=== PATIENT | female | born 1950 | race Caucasian/White ===

== ENCOUNTER 2022-05-12 09:52 | Day surgery (SDC) | payer MEDICARE, SELFPAY ==
[2022-05-12] VITALS (7 sets, daily range): BP systolic 95–151; BP diastolic 54–60; PULSE 56–72; RESP 16; TEMP 36.1–36.6; O2SAT 90–98; BMI 25.4
[2022-05-12 10:36] LABS: Bedside Glucose 192 mg/dL (74-106)
--- NOTE | 2022-05-12 11:21 | PCM.DC ---
Discharge Instructions Diet Discharge Diet: No restrictions Activity Discharge Activity: Return to Normal Activity Dressing / Incision Call your doctor if you observe: Fever of 101 or Higher, Inability to urinate and Inability to have a bowel movement Follow Up Care Please Follow Up With: Madyson Plaza MD When: Call the office for appointment in 1 to 2 weeks Test Results: Test results from this visit will be discussed in further detail at your follow-up appointment, if applicable. Discharge Plan Admission Attending Provider: Madyson Plaza Primary Care Provider: Dyana Diaz NP Discharge Orders/Prescriptions Prescriptions: Continued losartan 50 mg tablet 50 mg PO DAILY furosemide 40 mg tablet 40 mg PO DAILY sennosides [Senna Laxative] 8.6 mg Tablet 68.8 mg PO QHS acetaminophen 325 mg Tablet 650 mg PO Q4H PRN (Reason: Pain) atorvastatin 20 mg Tablet 20 mg PO QHS albuterol sulfate 2.5 mg /3 mL (0.083 %) solution for nebulization 2.5 mg inhalation 4X/DAY PRN PRN (Reason: SOB) polyethylene glycol 3350 [Miralax] 17 gram Powder In Packet 17 - 34 g PO DAILY metoprolol tartrate 100 mg tablet 100 mg PO BID glipizide 10 mg tablet extended release 24hr 10 mg PO DAILY isosorbide mononitrate 30 mg tablet extended release 24 hr 30 mg PO DAILY sertraline 100 mg tablet 100 mg PO BID docusate sodium 50 mg Capsule 100 mg PO QHS methenamine hippurate 1 gram tablet 1 g PO BID ascorbic acid (vitamin C) [Vitamin C] 500 mg Tablet 500 mg PO DAILY metformin 1,000 mg tablet 1,000 mg PO BID buspirone 10 mg tablet 10 mg PO BID Label Comments: TAKE 1 TABLET BY MOUTH TWICE DAILY diphenhydramine HCl [Allergy] 25 mg Tablet 25 mg PO DAILY Spiriva with HandiHaler 18 mcg capsule, w/inhalation device 18 mcg INHALATION DAILY nitrofurantoin monohyd/m-cryst 100 mg capsule 100 mg PO BID Label Comments: TAKE 1 CAPSULE BY MOUTH TWICE DAILY FOR 7 DAYS calcium carbonate-vitamin D3 500 mg-3.125 mcg (125 unit) Tablet 2 tab PO DAILY melatonin 10 mg Tablet 10 mg PO QHS aspirin 81 mg Capsule 81 mg PO QHS Referrals / Follow Up: Dyana Diaz NP, CABLE TELEVISION ACCESS COORDINATOR-C [Primary Care Provider] - Disposition Disposition (needs filled in before D/C Order can be placed): Home, Self Care
--- NOTE | 2022-05-12 11:23 | PCM.OPRPT ---
Report of Operation Date of Procedure: 05/12/22 Pre-Operative Diagnosis: Urinary tract infections, mixed urinary incontinence Post-Operative Diagnosis: Same Surgery/Procedure Performed:: Cystoscopy, pelvic exam under anesthesia Surgeon: Madyson Plaza Type of Anesthesia: MAC Specimen's removed: None Description of Procedure: The patient is a 71-year-old female with recurrent urinary tract infections and leakage who presents for evaluation under anesthesia due to the inability to undergo this procedure in the office. Informed consent was obtained. The patient was taken to the operating room placed on the operating room table. Anesthesia monitored the head, neck, airway, IV access and vital signs throughout the case. Once anesthesia was appropriate ministered, the patient was placed into dorsal lithotomy position and was prepped and draped in usual sterile fashion. A pelvic exam revealed no evidence of significant pelvic organ prolapse, no pelvic mass. There is vaginal atrophy present. The urethra was then intubated under direct visualization with the cystoscope. The bladder mucosa in its entirety was directly visualized and there was no evidence of erythema, mass, ulceration or foreign body. At this time the patient's bladder was emptied and the case was terminated. There were no complications during this procedure. The patient was awakened and taken to recovery room in good condition. Grafts/Implants Used: None Complications None Admit VTE Documentation VTE Present on Admission: Yes VTE Mechan Device Prophylaxis: SCD's VTE Pharm Prophylaxis ordered?: No Reason prophylaxis not ordered:: Treatment Not Indicated
== END 2022-05-12 12:33 | disposition home or self-care (01) ==
LOC: SDC 09:57 → AC 09:58
PROVIDERS: PCP Nurse Practitioner Primary Care; Referring Provider Urology; Visit Provider Urology
PROC: 0TJB8ZZ Inspection of Bladder, Via Natural or Artificial Opening Endoscopic (ICD-10-PCS; CPT 57410; principal; 2022-05-12 11:15)
DX: N39.46 Mixed incontinence (principal); J44.9 Chronic obstructive pulmonary disease, unspecified; E11.9 Type 2 diabetes mellitus without complications; N95.2 Postmenopausal atrophic vaginitis; I25.10 Atherosclerotic heart disease of native coronary artery without angina pectoris; I10 Essential (primary) hypertension; I35.0 Nonrheumatic aortic (valve) stenosis; I25.2 Old myocardial infarction; E78.00 Pure hypercholesterolemia, unspecified; K59.09 Other constipation; R35.0 Frequency of micturition; R35.1 Nocturia; F32.A Depression, unspecified; F17.200 Nicotine dependence, unspecified, uncomplicated; Z95.5 Presence of coronary angioplasty implant and graft; Z79.82 Long term (current) use of aspirin; Z79.84 Long term (current) use of oral hypoglycemic drugs; Z79.899 Other long term (current) drug therapy; Z87.440 Personal history of urinary (tract) infections
CPT/HCPCS: 52000; 82962; J7120

== ENCOUNTER → 2024-10-21 | Outpatient (CLI) | payer MEDICARE, SELFPAY ==
--- NOTE | 2024-10-21 | BON_PTH ---
PATIENT: CHRISTINA MARCIAL LOC: [facility] U#:[id number] AGE/SX: 74/F ROOM: RE10/21/[address]: Dr. Jonny Juarez MD : 1950 BED: DIS: 10/21/2024 SPEC #: [id number] RECD: 10/21/24 15:12 STATUS: AAKASH REYadiel #: [id number] KATE: 10/21/24 00:[address]: Jonny Juarez DEPT: SURGICAL PATHOLOGY RECD BY: Elia Medina ENTERED: 10/22/24 12:20 SP TYPE: Bone OTHR DR: Dyana Diaz, APPLIANCE SALES ASSOCIATE-C Tissues: Vertebra, NOS Procedures: Decalcification bone/plaque Surgery Specimen Level IV HEADER OPERATION: Kyphoplasty of L4 under fluoroscopy with biopsy of L4 PRE-OP DIAGNOSIS: Age-related osteoporosis with current pathologic fracture, vertebrae, initial encounter for fracture TISSUE SUBMITTED: Body of L4 vertebrae MICROSCOPIC DIAGNOSIS Body of L4 vertebrae, bone biopsy: Reactive and reparative change consistent with fracture site. No evidence of malignancy. . 10/24/2024 MICROSCOPIC DESCRIPTION Slides are reviewed. GROSS DESCRIPTION Received in fixative is one container labeled with the patient's name and designated Body of L4 vertebrae. The specimen consists of a cylindrical fragment of gutierrez bone measuring 1.0 x 0.2 x 0.2cm. The specimen is totally submitted in one cassette after decalcification. . 10/22/2024 TC:5 CPT:70173,19934
== END | disposition home or self-care (01) ==
LOC: LABSPEC 15:47
PROVIDERS: PCP Nurse Practitioner Primary Care; Referring Provider Anesthesiology Pain Medicine; Visit Provider Anesthesiology Pain Medicine
DX: M80.08XA Age-related osteoporosis with current pathological fracture, vertebra(e), initial encounter for fracture (principal)
CPT/HCPCS: 88305; 88311

== ENCOUNTER 2024-12-17 17:59 | Inpatient (IN) | payer MEDICARE, SELFPAY ==
[2024-12-17 17:59] VITALS: BP 174/99; PULSE 128; RESP 20; TEMP 36.1; O2SAT 96; BMI 22.2
[2024-12-17 19:29] LABS: Alcohol, Blood (Medical)-Serum < 3.0 mg/dL
[2024-12-17 19:33] LABS: Absolute Lymphocyte Count 0.92 X10^3/uL (0.83-4.51); Absolute Neutrophil Count 7.4 X10^3/uL (2.0-7.7); Basophil# 0.06 X10^3/uL; Basophil% 0.7 % (0-1); Eosinophil# 0.02 X10^3/uL; Eosinophils% 0.2 % (0-5); Hematocrit 46.8 % (37-47); Lymphocyte # 0.92 X10^3/ul (0.83-4.51); Lymphocyte % 10.1 % (19-41); Mean Corp Hgb Conc 34.2 g/dL (32-36); Mean Corpuscular Hgb 27.8 pg (27.0-32.0); Mean Corpuscular Volume 81.3 fL (81-99); Mean Platelet Vol. 9.4 fl (6.2-12.0); Monocyte# 0.62 X10^3/uL; Monocyte% 6.8 % (0-10); NRBC Flagged by Analyzer 0 % (0-5); Neutrophil # 7.41 X10^3/uL (2.7-7.7); Neutrophil % 81.2 % (47-70); Platelet Count 249 K/mm3 (150-450); RBC Distribution Width CV 12.4 % (11.6-14.6); RBC Distribution Width SD 36.7 fl (35.1-43.9); Red Blood Count 5.76 M/mm3 (4.2-5.4); White Blood Count 9.1 K/mm3 (4.4-11.0)
[2024-12-17 19:41] LABS: Anion Gap 13 (5-15); BUN 17 mg/dL (7-18); BUN/Creat Ratio 33.3 RATIO (10-20); Calcium,Total 9.4 mg/dL (8.5-10.1); Chloride 83 mmol/L (98-107); Creatinine, Serum 0.51 mg/dL (0.55-1.02); EST Glomerular Filtration Rate 126 mL/min (>60); Est Glom Filt Rate - Afr Amer 152 mL/min (>60); Estimated Creatinine Clearance 52.58 ml/min; Glucose 208 mg/dL (74-106); Potassium 4.2 mmol/L (3.5-5.1); Sodium Level 117 mmol/L (136-145)
--- NOTE | 2024-12-17 19:42 | EKG12_ITS ---
Test Reason : DYSRHYTHMIA Blood Pressure : */* mmHG Vent. Rate : 112 BPM Atrial Rate : 112 BPM P-R Int : 182 ms QRS Dur : 74 ms QT Int : 334 ms P-R-T Axes : * 32 66 degrees QTcB Int : 455 ms Sinus tachycardia with occasional Premature ventricular complexes Septal infarct , age undetermined Abnormal ECG Confirmed by TARYN BROTHERS, JASSI ([id number]), technical writer and editor ALEXANDRA PAT ([id number]) on 12/23/2024 7:08:52 AM Referred By: Confirmed By: JASSI CENTENO MD
--- NOTE | 2024-12-17 19:42 | RAD_ITS ---
INDICATION: ms change EXAMINATION/TECHNIQUE: X-RAY - XR Chest 1 View COMPARISON: None. FINDINGS: 1.5 cm round density projecting over the left lung base. The lungs are otherwise clear. Tortuous and calcified thoracic aorta. The heart is not enlarged. No pleural effusion or pneumothorax. Degenerative changes of the thoracic spine. RAD/Chest 1 View (Portable) IMPRESSION: 1.5 cm round density projecting over the left lung base could represent a pulmonary nodule versus nipple shadow. Recommend AP and lateral view radiographs with nipple markers. Electronically Signed: Kalen Matthews MD at 20:59 EST ,
--- NOTE | 2024-12-17 19:52 | EX.ED.VIS.PS ---
HPI HPI - Psych History of Present Illness Chief Complaint: Mental Health Detail of Chief Complaint: Failure to thrive. Informant: patient and family Onset/Context/Timing Onset: Days Context: Gradual Onset Timing: Continuous Current Severity: Moderate Maximum Severity: Moderate Associated Symptoms Associated Symptoms - Psych: Positive for Depressed Specific plan (suicidal thought): No plan. Lost her will to live per family. Narrative Narrative: 74-year-old female history of anxiety and depression. Today was seen by the [facility]. Due to failure to thrive and depression he send in the emergency department for an ED mental health evaluation and possible psychiatric transfer. Patient just lost her will to live per family. She denies a specific plan. She also has a history of diabetes, COPD and prior TN. She has had history of hyponatremia in the past. No recent illness. No vomiting or diarrhea. No fever. Prior similar symptoms: Yes Recent Illness/Hospital[facility]: [facility] Medical History Wears dentures History of Clostridium difficile infection Anxiety Depression Diabetes Easy bruising High cholesterol Restless legs Difficulty swallowing On home oxygen therapy Asthma COPD (chronic obstructive pulmonary disease) Shortness of breath on exertion Chronic cough Smoker PONV (postoperative nausea and vomiting) Leg cramps History of echocardiogram Hypertension History of heart attack Cardiology follow-up encounter Chest pain Home Medications ?Medication ?Instructions ?Recorded ?Last Taken ?Type acetaminophen 325 mg tablet 650 mg PO Q4H PRN Pain 05/08/22 Unknown History albuterol sulfate 2.5 mg/3 mL 2.5 mg inhalation 4X/DAY PRN PRN 05/08/22 Unknown History (0.083 %) solution for nebulization SOB ascorbic acid (vitamin C) 500 mg 500 mg PO DAILY 05/08/22 Unknown History tablet (Vitamin C) aspirin 81 mg capsule 81 mg PO QHS 05/08/22 Unknown History atorvastatin 20 mg tablet 40 mg PO QHS 05/08/22 Unknown History calcium 500 mg (as 2 tab PO DAILY supplement 05/08/22 Unknown History carbonate)-vitamin D3 3.125 mcg (125 unit) tablet diphenhydramine HCl 25 mg tablet 25 mg PO DAILY PRN allergy symptoms 05/08/22 Unknown History (Allergy) docusate sodium 50 mg capsule 100 mg PO QHS 05/08/22 Unknown History furosemide 40 mg tablet 40 mg PO DAILY BP 05/08/22 Unknown History isosorbide mononitrate 30 mg 30 mg PO DAILY 05/08/22 Unknown History tablet,extended release 24 hr losartan 50 mg tablet 25 mg PO DAILY 05/08/22 Unknown History melatonin 10 mg tablet 10 mg PO QHS 05/08/22 Unknown History metformin 1,000 mg tablet 500 mg PO TID 05/08/22 Unknown History metoprolol tartrate 100 mg tablet 50 mg PO BID 05/08/22 Unknown History sennosides 8.6 mg tablet (Senna 68.8 mg PO QHS 05/08/22 Unknown History Laxative) sertraline 100 mg tablet 100 mg PO BID 05/08/22 Unknown History tiotropium bromide 18 mcg capsule 18 mcg inhalation DAILY 05/08/22 Unknown History with inhalation device (Spiriva with HandiHaler) Allergy/AdvReac Type Severity Reaction Status Date / Time atorvastatin (From Lipitor) Allergy Other Verified 12/17/24 18:04 copanlisib di-hydrochloride Allergy Other Verified 12/17/24 18:04 sulfacetamide Allergy Other Verified 12/17/24 18:04 Surgical History Aortic valve replaced History of colonoscopy History of cardiac catheterization History of heart artery stent History of cholecystectomy History of pancreatic surgery History of ovarian cystectomy History of bladder suspension procedure History of hysterectomy History of History of uterine suspension procedure Social History Smoking Status: Current every day smoker tobacco type: cigarettes ROS ROS ED ROS Narrative Depression. Decreased oral intake. Denies vomiting or diarrhea. Denies fever. Denies dysuria. Constitutional Constitutional ED: Denies chills or fever(s) Eyes Eyes: Denies blurry vision ENT ENT ED: Denies ear pain Cardiovascular Cardiovascular: Denies chest pain Respiratory/Chest Respiratory/Chest: Denies cough Gastrointestinal Gastrointestinal: Denies abdominal pain Genitourinary Genitourinary ED: Denies dysuria Musculoskeletal Musculoskeletal: Denies arthralgias Integumentary Denies abscess Neurologic Neurologic: Reports weakness; Denies headache(s) Psychiatric Psychiatric: Reports depression Endocrine Endocrinology: Denies polydipsia Hematologic/Lymphatic Hematologic/Lymphatic: Denies easy bleeding or easy bruising Allergic/Immunologic Allergic/Immunologic ED: Denies mouth swelling, tongue swelling or urticaria EXAM Physical Exam Narrative Exam Narrative: 74-year-old female sitting upright in bed. Vital signs are stable initially she was tachycardic at 128 in triage heart rates around 110 currently. She does not look septic or toxic. She is in no acute distress. Family at bedside. Pulse ox 96% on room air no hypoxia. No distress. HEENT exam moist mucous membranes. Pupils round reactive light. Neck nontender no JVD. No lymphadenopathy. Lungs clear to auscultation bilaterally. Heart tachycardic 110 no murmur. Chest wall ribs nontender. Abdomen soft nontender. Moving all 4 extremities. Nontender no edema. No deformity. Back nontender. Neurologically she is awake and alert. Seems emotionally depressed. No focal motor deficits. Const Vital Signs: 12/17/24 17:59 12/17/24 19:59 12/17/24 20:07 Temperature 96.9 F L 98.4 F Temperature Source Temporal Pulse Rate 128 H 102 H 100 Respiratory Rate 20 H 22 H 21 H Blood Pressure 174/99 H 109/80 109/80 Blood Pressure Mean 124 89 89 Pulse Ox 96 92 92 Oxygen Delivery Method Room Air Room Air 12/17/24 20:33 Temperature Temperature Source Pulse Rate 99 Respiratory Rate 20 H Blood Pressure 109/80 Blood Pressure Mean 89 Pulse Ox 93 Oxygen Delivery Method Room Air Positive well nourished and well developed; Negative for cachectic, contractures or unkempt General Appearance ED: well developed and NAD; Negative for unkempt, cachectic or contractures Nutritional Appearance: Negative for cachectic HEENT Reports moist mucous membranes normocephalic and atraumatic Eyes PERRL and EOMs intact bilaterally Neck no lymphadenopathy, supple and no JVD Resp normal respiratory effort and clear to auscultation bilaterally Auscultation: Negative for rales, rhonchi or wheezes Cardio S1 normal heart sound, S2 normal heart sound and no murmurs Rate: tachycardic GI non-tender, non-distended and no masses Palpation: soft; Negative for tender, guarding or mass Back/Spine no CVA tenderness General Back: Negative for CVA tenderness Cervical Spine: Negative for cervical spine tenderness Thoracic Spine / Upper Back: Negative for thoracic spinal tenderness Lumbar Spine / Lower Back: Negative for lumbar spinal tenderness Coccyx: Negative for other Extremity normal to inspection General Extremety ED: Negative for edema or tenderness General Extremity: Negative for edema Neuro CN's II-XII intact bilaterally Neuro Narrative: Patient is emotionally depressed. She is awake. Her eyes are open. She is follows limited commands. She is not very talkative. Family in the room. They are answering most of the questions for her. Sensorium / Orientation: alert, oriented to person and oriented to place Motor Exam: general weakness Psych cooperative, speech normal and activity/motor behavior normal; Negative for affect normal Appearance: grossly normal, appropriate and well kempt; Negative for unkempt Attitude: calm and withdrawn Activity / Motor Behavior: avoids eye contact Speech: normal speech Mood & Affect: depressed Thought Process: normal thought process Thought Content: normal thought content Attention / Concentration: attention grossly intact Memory / Cognition: memory grossly intact Insight: limited Judgement: limited Skin Rashes: no rashes Trauma: Negative for abrasion MDM MDM MDM Narrative Medical decision making narrative: 74-year-old female with depression. But on labs has acute on chronic hyponatremia. We have no prior labs but according to family she has had hyponatremia in the past for which she need to be hospitalized. They do not believe its ever been this low before. I will speak to the hospitalist about admission. I spoke to the hospitalist. Patient will be placed on MedSur telemetry. History & Record Review Discussion w/independent historian: Patient and Family Additional record(s) reviewed:: No prior records Lab Data Attestation: I reviewed the patient's lab results. Lab results narrative: CBC shows a white count of 9. H&H is 16 and 46. Platelets 249. Electrolytes show sodium 117. Gap 13. Normal BUN of 17 creatinine 0.5. Glucose 208. Alcohol levels negative. Urinalysis is pending. Labs: Laboratory Results - last 24 hr 12/17/24 18:59 WBC 9.1 RBC 5.76 H Hgb 16.0 H Hct 46.8 MCV 81.3 MCH 27.8 MCHC 34.2 RDW Std Deviation 36.7 RDW Coeff of Octavia 12.4 Plt Count 249 MPV 9.4 Immature Gran % (Auto) 1.000 H Neut % (Auto) 81.2 H Lymph % (Auto) 10.1 L Reynolds % (Auto) 6.8 Eos % (Auto) 0.2 Baso % (Auto) 0.7 Absolute Neuts (auto) 7.4 Absolute Lymphs (auto) 0.92 Nucleated RBC % 0 Sodium 117 L* Potassium 4.2 Chloride 83 L Carbon Dioxide 20.0 L Anion Gap 13 BUN 17 Creatinine 0.51 L Estim Creat Clear Calc 52.58 Est GFR (MDRD) Af Amer 152 Est GFR (MDRD) Non-Af 126 BUN/Creatinine Ratio 33.3 H Glucose 208 H Calcium 9.4 Ethyl Alcohol < 3.0 Radiography Chest X-Ray - ED: 1 View, Read by ED Physician, Lungs, Mediastinum, Bony Structures, No Acute Disease and Chronic Changes Diagnostic Testing: Chest x-ray, portable, single view interpreted by myself shows no acute process. Normal cardiac silhouette. Some type of cardiac stent or she has a metallic mesh in the midportion of her cardiac stent. Chronic changes to lungs. No acute process. Valve. Rhythm Strip Rhythm Strip: Sinus Rhythm Rate: 112 Ectopy: PVC(s) EKG Initial EKG: Attestation: I personally reviewed and interpreted this EKG as follows: Interpretation: No Acute Injury Pattern and Sinus Tachycardia Comments: Sinus tachycardia rate of 112. Frequent PVCs. No acute signs of TN or ischemia. Discharge Plan Dx/Rx/DC Orders Clinical Impression: Depression, Adult failure to thrive, Generalized weakness, Acute hyponatremia Disposition Disposition: Acute Care [facility]
[2024-12-17 19:59] VITALS: BP 109/80; PULSE 102; RESP 22; O2SAT 92
[2024-12-17 20:07] VITALS: BP 109/80; PULSE 100; RESP 21; TEMP 36.9; O2SAT 92
--- NOTE | 2024-12-17 20:10 | HP.PCM.HOS_ITS ---
HPI - General General Date of Admission: 12/17/24 Date of Service: 12/17/24 Chief Complaint: Adult FTT, depression, poor intake. HPI Narrative The patient is a 74 y/o F w/ PMHx: Anxiety and Depression, Asthma/COPD w/ Chronic Hypoxic Respiratory Failure, Hx Cdiff colitis, Diabetes mellitus type II, Tobacco use, RLS, CAD s/p PCI, Valvular Heart Disease s/p AVR, Recent [facility] main facility evaluation per family with noted hyponatremia diagnosis there with LLL possible lung mass with outpatient recommended pulmonary evaluation/PET scan/Nephrology follow-up but patient declined pulmonary follow- up the other visits deferred given family bringing her in for evaluation who presents to the [facility] ED on 12/17/24 with significant decline, failure to thrive with decreased oral intake with evaluation at the counseling center per family on day of presentation with severe depression with mental health evaluation recommendation referral the ED with concern for need for psychiatric transfer prompting ED evaluation. Patient in the ED does not have any specific suicidal thoughts or plan. Patient's family specifically states they feel she is lost her will to live. Workup in the ED included T96.9, heart rate 128, BP 174/99, respiratory rate 20, 96% room air, CBC with WBC 9.1, hemoglobin 16, MCV 81.3, platelet 249 with increased immature granulocytes, BMP with sodium 117, chloride 83, carbon oxide 20, BUN/creatinine 17/0.51, GFR 126, glucose 2 8, alcohol less than 3, EKG with ST with rate 112 without acute evidence of ischemia. In the ED patient ministered 1 L normal saline. [facility] Medical History Wears dentures History of Clostridium difficile infection Anxiety Depression Diabetes Easy bruising High cholesterol Restless legs Difficulty swallowing On home oxygen therapy Asthma COPD (chronic obstructive pulmonary disease) Shortness of breath on exertion Chronic cough Smoker PONV (postoperative nausea and vomiting) Leg cramps History of echocardiogram Hypertension History of heart attack Cardiology follow-up encounter Chest pain Home Medications ?Medication ?Instructions ?Recorded ?Last Taken ?Type acetaminophen 325 mg tablet 650 mg PO Q4H PRN Pain 05/08/22 Unknown History albuterol sulfate 2.5 mg/3 mL 2.5 mg inhalation 4X/DAY PRN PRN 05/08/22 Unknown History (0.083 %) solution for nebulization SOB ascorbic acid (vitamin C) 500 mg 500 mg PO DAILY 05/08/22 Unknown History tablet (Vitamin C) aspirin 81 mg capsule 81 mg PO QHS 05/08/22 Unknown History atorvastatin 20 mg tablet 40 mg PO QHS 05/08/22 Unknown History calcium 500 mg (as 2 tab PO DAILY supplement 05/08/22 Unknown History carbonate)-vitamin D3 3.125 mcg (125 unit) tablet diphenhydramine HCl 25 mg tablet 25 mg PO DAILY PRN allergy symptoms 05/08/22 Unknown History (Allergy) docusate sodium 50 mg capsule 100 mg PO QHS 05/08/22 Unknown History furosemide 40 mg tablet 40 mg PO DAILY BP 05/08/22 Unknown History isosorbide mononitrate 30 mg 30 mg PO DAILY 05/08/22 Unknown History tablet,extended release 24 hr losartan 50 mg tablet 25 mg PO DAILY 05/08/22 Unknown History melatonin 10 mg tablet 10 mg PO QHS 05/08/22 Unknown History metformin 1,000 mg tablet 500 mg PO TID 05/08/22 Unknown History metoprolol tartrate 100 mg tablet 50 mg PO BID 05/08/22 Unknown History sennosides 8.6 mg tablet (Senna 68.8 mg PO QHS 05/08/22 Unknown History Laxative) sertraline 100 mg tablet 100 mg PO BID 05/08/22 Unknown History tiotropium bromide 18 mcg capsule 18 mcg inhalation DAILY 05/08/22 Unknown History with inhalation device (Spiriva with HandiHaler) Allergy/AdvReac Type Severity Reaction Status Date / Time atorvastatin (From Lipitor) Allergy Other Verified 12/17/24 18:04 copanlisib di-hydrochloride Allergy Other Verified 12/17/24 18:04 sulfacetamide Allergy Other Verified 12/17/24 18:04 Family History Mother CAD (coronary artery disease) Heart disease Hypertension Myocardial infarction Diabetes Father Rectal cancer Surgical History Aortic valve replaced History of colonoscopy History of cardiac catheterization History of heart artery stent History of cholecystectomy History of pancreatic surgery History of ovarian cystectomy History of bladder suspension procedure History of hysterectomy History of History of uterine suspension procedure Social History household members: other details: Lives in an in-law suite with her Brother. Smoking Status: Current every day smoker tobacco type: cigarettes Smoking packs per day: 2 Smoking cigarettes per day: 40.0 alcohol intake: never substance use type: does not use ROS ROS Narrative Admission Review of Systems: CONSTITUTIONAL: No weight loss, fever, chills, + weakness or fatigue. HEENT: Eyes: No visual loss, blurred vision, double vision or yellow sclerae. Ears, Nose, Throat: No hearing loss, sneezing, congestion, runny nose or sore throat. SKIN: No rash or itching, lesions, wounds. CARDIOVASCULAR: No chest pain, chest pressure or chest discomfort, palpitations, edema, orthopnea, syncopal events. RESPIRATORY: No shortness of breath, cough or sputum, wheezing, hemoptysis. GASTROINTESTINAL: + anorexia. No nausea, vomiting or diarrhea, abdominal pain, melena, BRBPR. GENITOURINARY: No dysuria, frequency, urgency or retention. NEUROLOGICAL: + Increased weakness, generalized with more flat affect/depression associated. No headache, dizziness, syncope, paralysis, ataxia, numbness or tingling in the extremities, focal weakness, change in bowel or bladder control, seizure. MUSCULOSKELETAL: + muscle, back pain, joint pain or stiffness. HEMATOLOGIC: No anemia, bleeding or bruising. LYMPHATICS: No enlarged nodes. No history of splenectomy. PSYCHIATRIC: + History of anxiety and depression, worsened depression recently. ENDOCRINOLOGIC: No reports of sweating, cold or heat intolerance. No polyuria or polydipsia. ALLERGIES: + History of allergic rhinitis. Vital Signs Vital Signs Vital Signs: 12/17/24 17:59 12/17/24 19:59 12/17/24 20:07 Temperature 96.9 F L 98.4 F Temperature Source Temporal Pulse Rate 128 H 102 H 100 Respiratory Rate 20 H 22 H 21 H Blood Pressure 174/99 H 109/80 109/80 Blood Pressure Mean 124 89 89 Pulse Ox 96 92 92 Oxygen Delivery Method Room Air Room Air Weight Weight: 125 lb 11.2 oz Body Mass Index (BMI) 22.2 Physical Exam Narrative Physical Examination: General: Awake, alert, oriented to self, place and recent events, remains cooperative, seated upright in the ED bed, soft voice, flat affect. Skin: Normal color, normal turgor, no icterus, no cyanosis except occasional stage ecchymoses, abrasion. HEENT: AT/NC, EOMI, PERRLA, dry MM, no carotid bruits or JVD noted. Lungs: Diminished, greater bases, appropriate effort, no evidence any distress, no rales, ronchi or wheezing. Heart: Improved, regular rate and rhythm; no gallop, rub audible. Abdomen: Soft, thin habitus, NTTP, ND, hyperactive BS, no appreciated HSM. Extremities: No cyanosis, clubbing, or edema. Neurological: Patient awake, alert, oriented as noted, cognitive function intact but does clearly appear to have a flat affect/depressed; pupils equally reactive to light and accommodation, cranial nerves grossly normal, moving all 4 extremities, no focal deficits, strength moderately globally decreased Psychiatric: Affect appears flat, does admit to depression, no suicidal ideation, does have anxiety and depressive history. Results Lab / Micro Data 12/17/24 18:59 12/17/24 18:59 Labs: Laboratory Results - last 24 hr 12/17/24 18:59: WBC 9.1, RBC 5.76 H, Hgb 16.0 H, Hct 46.8, MCV 81.3, MCH 27.8, MCHC 34.2, RDW Std Deviation 36.7, RDW Coeff of Octavia 12.4, Plt Count 249, MPV 9.4, Immature Gran % (Auto) 1.000 H, Neut % (Auto) 81.2 H, Lymph % (Auto) 10.1 L , [place] % (Auto) 6.8, Eos % (Auto) 0.2, Baso % (Auto) 0.7, Absolute Neuts (auto) 7.4, Absolute Lymphs (auto) 0.92, Nucleated RBC % 0, Sodium 117 L*, Potassium 4.2, Chloride 83 L, Carbon Dioxide 20.0 L, Anion Gap 13, BUN 17, Creatinine 0.51 L, Estim Creat Clear Calc 52.58, Est GFR (MDRD) Af Amer 152, Est GFR (MDRD) Non- Af 126, BUN/Creatinine Ratio 33.3 H, Glucose 208 H, Calcium 9.4, Ethyl Alcohol < 3.0 Assessment & Plan Assessment/Plan (1) Adult failure to thrive: (2) Depression: PLAN: Plan The patient is a 74 y/o F w/ PMHx: Hyponatremia but unclear etiology or level baseline, Anxiety and Depression, Asthma/COPD w/ Chronic Hypoxic Respiratory Failure, Hx Cdiff colitis, Diabetes mellitus type II, Tobacco use, RLS, CAD s/p PCI, Valvular Heart Disease s/p AVR who presents to the [facility] ED on 12/17/24 with significant decline, failure to thrive with decreased oral intake with evaluation at the counseling center per family on day of presentation with severe depression with mental health evaluation recommendation referral the ED with concern for need for psychiatric transfer prompting ED evaluation. #1. Acute on Chronic Hyponatremia on reported history of chronic of unclear mechanism but given possible LLL Mass, possible Cancer etiology but uncertain, suspect hypovolemic component given lack of intake secondary to uncontrolled Depression with adult failure to thrive: Admission Na 117, baseline unknown as no comparison labs, suspect secondary hypovolemic etiology especially given elevated hemoglobin as well as decreased chloride, to be cautious will obtain FeNa, Mag, TSH, [place], if not clinically improving with IV fluids judiciously and repeat serial BMPs may need to involve nephrology especially if lung CA related but awaiting records as noted. Will defer/give hypertonic saline if onset severe symptoms including headache, nausea, ataxia, confusion. Records from [place] requested. Patient and family noted no intention to pursue cancer treatments and patient per family was this modus operandi. Family and patient also note already requesting outpatient Hospice evaluation per their home visiting nurse. Given this, hyponatremia may remain low which will need to be taken into account prior to further depression evaluation. PT/OT/CM consulted. #2. Anxiety and depression, uncontrolled: Unfortunately unclear baseline of hyponatremia previously given no comparison labs, will temporarily hold sertraline, continue BuSpar and we add back sertraline once assure that sodium levels improving certainly given age may contribute somewhat, will need crisis evaluation once medically cleared and potential geriatric psychiatric facility placement if felt appropriate. #3. Diabetes mellitus type II with hyperglycemia: Admission glucose 208, hold oral home regimen, ADA diet, accu checks w/ ISS. #4. CAD: Status post PCI per history, will continue aspirin, statin, losartan, metoprolol regimen with hold parameters as needed. #5. Chronic COPD/Asthma w/ Chronic Hypoxia Respiratory Failure: Will maintain on home oxygen supplementation, continue ATC budesonide, PRN albuterol, HOB, IS parameters, encourage tobacco cessation. #6. Hypertension: Continue home regimen including metoprolol, isosorbide with hold parameters as needed, holding Lasix/losartan given significant dehydrated presentation with hyponatremia. PRN hydralazine. #7. Hyperlipidemia: Continue patient on statin therapy. #8. Valvular heart disease: Noted history status post AVR, no echocardiogram noted in the system, encourage continued follow-up outpatient with cardiology as previously arranged. #9. Tobacco Abuse: Encouraged cessation, inpatient consultation per RT, NR if desired but declined upon admission. #10. Severe protein calorie malnutrition: Per family significant decreased oral intake over at least a 7-day period, adult failure to thrive, depression associated, per their report also losing weight, nutrition consulted for recommendations. #11. DVT prophylaxis: Lovenox. #12. CODE status: Patient HCPRICHMOND is her daughter who is present and living will is currently in place. Discussed CODE status at length including difference between FULL code, DNR-CCA and DNR-CC status. Following discussions about the differences in these status. Currently per family and patient will place full code with the understanding that prolonged measures would be deferred. Advanced Care Planning Face to Face Time: 16 minutes. Charges/Coding Visit Charges Inpatient E&M: 45285 Init Hosp L3 Procedures Hospitalists Procedures: 62952 Advncd Care Plan 30 Min
[2024-12-17] MEDS: 0.9% Normal Saline (1000mL) 1,000 ML 999 ML IV (20:13)
--- NOTE | 2024-12-17 20:21 | ED.RN ---
Called Crisis, spoke to Cali. Informed him that pt is going to be admitted to hospital so placement would need to be after that.
[2024-12-17 20:33] VITALS: BP 109/80; PULSE 99; RESP 20; O2SAT 93
--- NOTE | 2024-12-17 21:03 | CM.ED ---
Social Work Patient was evaluated by Cali at [facility], was determined to need inpatient psychiatric treatment and sent to ED for medical clearance. Patient was not medically cleared and is being admitted for hyponatremia. Cali from Crisis notified that patient is being admitted to [facility]. SW met with family and patient. Family stated they were still interested in patient being admitted to an inpatient psychiatric unit after medically cleared. Jennifer Schaefer, [employer]ANT MAINTAINER, SENIOR HEALTH PHYSICS TECHNICIAN
[2024-12-17 21:43] VITALS: BP 122/74; PULSE 106; RESP 16; TEMP 36.3; O2SAT 94
[2024-12-17 21:47] VITALS: BMI 21.4
[2024-12-17 22:21] LABS: Mucous, Urine 0 SEEN /hpf (<or=2+); Red Blood Cells-Urine 0 SEEN /hpf (0-5); Squamous Epithelial Cells - UA 0 SEEN /hpf (5-10)
[2024-12-17 22:27] LABS: Bedside Glucose 191 mg/dL (74-106)
[2024-12-17 22:28] LABS: Color, Urine Yellow (Yellow); Glucose, Dipstick 100 mg/dl (Normal); Ketone-Dipstick 50 mg/dl (Negative); Leukocyte Esterase-Dipstick 100 /ul (Negative); Nitrite-Dipstick Negative (Negative); Occult Blood-Urine Negative /ul (Negative); Protein-Dipstick 15 mg/dl (Negative); Urine Bilirubin Dipstick Negative (Negative); Urine Clarity Clear (Clear); Urine Urobilinogen 1 mg/dl (Normal)
[2024-12-17] MEDS: 0.9% Normal Saline (1000mL) 1,000 ML 75 ML IV (22:28)
[2024-12-17] MEDS: Insulin Lispro 100 UNIT/ML INSULN.PEN SC (22:29)
[2024-12-17 22:35] LABS: Bacteria RARE /hpf (None Seen); Transitional Epithelial - Ur 0-5 SEEN /hpf (0-5); White Blood Cells 5-10 SEEN /hpf (0-5)
[2024-12-17 22:42] LABS: Amphetamine Urine NEGATIVE (<1000 ng/mL); Barbiturate Urine NEGATIVE (< 200 ng/mL); Benzodiazepine Urine NEGATIVE (< 200 ng/mL); Cocaine Urine NEGATIVE (< 300 ng/mL); Ecstacy Urine NEGATIVE (< 500 ng/mL); Methadone Urine NEGATIVE (< 300 ng/mL); Opiates Urine NEGATIVE (< 300 ng/mL); PCP Urine NEGATIVE (< 25 ng/mL); THC Urine NEGATIVE (< 50 ng/mL); Vista UDS pH Range 5
[2024-12-17 23:12] LABS: Anion Gap 12 (5-15); BUN 16 mg/dL (7-18); BUN/Creat Ratio 29.6 RATIO (10-20); Chloride 88 mmol/L (98-107); Creatinine, Serum 0.54 mg/dL (0.55-1.02); EST Glomerular Filtration Rate 118 mL/min (>60); Est Glom Filt Rate - Afr Amer 142 mL/min (>60); Estimated Creatinine Clearance 52.58 ml/min; Glucose 183 mg/dL (74-106); Magnesium 1.6 mg/dL (1.6-2.6); Sodium Level 122 mmol/L (136-145); Thyroid Stim Hormone (TSH) 0.787 uIU/mL (0.358-3.740)
[2024-12-17 23:13] LABS: Urine Sodium 14 mmol/L (Not Establ.)
[2024-12-18] VITALS (15 sets, daily range): BP systolic 92–120; BP diastolic 60–98; PULSE 77–118; RESP 16–18; TEMP 36.3–36.9; O2SAT 89–97; BMI 21.3; BMI 23.2
[2024-12-18] MEDS: Atorvastatin Calcium 40 MG Tablet PO ×2 (00:02→22:59)
[2024-12-18] MEDS: Aspirin E.C. 81 MG Tablet PO ×2 (00:02→22:59)
[2024-12-18] MEDS: Metoprolol Tartrate 50 MG Tablet PO ×3 (00:02→22:59)
[2024-12-18] MEDS: MELATONIN 10 MG TABLET PO ×2 (00:02→22:59)
[2024-12-18 03:11] LABS: Anion Gap 10 (5-15); BUN 15 mg/dL (7-18); BUN/Creat Ratio 32.3 RATIO (10-20); Calcium,Total 8.5 mg/dL (8.5-10.1); Chloride 92 mmol/L (98-107); Creatinine, Serum 0.46 mg/dL (0.55-1.02); EST Glomerular Filtration Rate 140 mL/min (>60); Est Glom Filt Rate - Afr Amer 170 mL/min (>60); Estimated Creatinine Clearance 52.58 ml/min; Glucose 121 mg/dL (74-106); Sodium Level 121 mmol/L (136-145)
[2024-12-18] MEDS: Acetaminophen 325 MG Tablet 650 MG PO ×2 (03:59→08:13)
[2024-12-18 06:00] LABS: Absolute Lymphocyte Count 1.13 X10^3/uL (0.83-4.51); Absolute Neutrophil Count 5.9 X10^3/uL (2.0-7.7); Basophil# 0.04 X10^3/uL; Basophil% 0.5 % (0-1); Eosinophil# 0.04 X10^3/uL; Eosinophils% 0.5 % (0-5); Hemoglobin 14.9 g/dL (12.0-15.0); Lymphocyte # 1.13 X10^3/ul (0.83-4.51); Lymphocyte % 14.6 % (19-41); Mean Corp Hgb Conc 33.9 g/dL (32-36); Mean Corpuscular Volume 82.6 fL (81-99); Mean Platelet Vol. 9.8 fl (6.2-12.0); Monocyte# 0.55 X10^3/uL; Monocyte% 7.1 % (0-10); NRBC Flagged by Analyzer 0 % (0-5); Neutrophil # 5.91 X10^3/uL (2.7-7.7); Neutrophil % 76.1 % (47-70); Platelet Count 222 K/mm3 (150-450); RBC Distribution Width CV 12.4 % (11.6-14.6); RBC Distribution Width SD 37.7 fl (35.1-43.9); Red Blood Count 5.33 M/mm3 (4.2-5.4); White Blood Count 7.8 K/mm3 (4.4-11.0)
[2024-12-18 06:51] LABS: Bedside Glucose 135 mg/dL (74-106)
[2024-12-18 06:51] LABS: ALB/GLOB Ratio 0.9 RATIO (0.9-2.4); AST(SGOT) 35 U/L (15-37); Alanine Aminotransfer ALT/SGPT 25 U/L (13-56); Albumin, Serum 3.3 g/dL (3.2-5.0); Alkaline Phosphatase 157 U/L (45-117); Anion Gap 9 (5-15); BUN 15 mg/dL (7-18); BUN/Creat Ratio 26.8 RATIO (10-20); Calcium,Total 8.9 mg/dL (8.5-10.1); Chloride 89 mmol/L (98-107); Creatinine, Serum 0.56 mg/dL (0.55-1.02); EST Glomerular Filtration Rate 113 mL/min (>60); Est Glom Filt Rate - Afr Amer 137 mL/min (>60); Estimated Creatinine Clearance 52.58 ml/min; Globulin 3.6 g/dL (2.2-4.2); Glucose 123 mg/dL (74-106); Potassium 4.1 mmol/L (3.5-5.1); Protein, Total 6.9 g/dL (6.4-8.2); Sodium Level 121 mmol/L (136-145)
[2024-12-18] MEDS: Budesonide Respules 0.5 MG/2 ML AMPUL.NEB. INHALATION ×2 (07:15→19:39)
--- NOTE | 2024-12-18 08:11 | PCM.PN.HOSP ---
Reason for Visit Reason for Visit: Diagnoses Depression, unspecified (12/17/24) Adult failure to thrive (12/17/24) Subjective Subjective Feels well. States that she has had hyponatremia in the past. Objective Data Objective Data Vital Signs: Vital Signs Temp Pulse Resp BP Pulse Ox O2 Del Method 36.3 C L 93 18 120/85 H 96 Room Air 12/18/24 07:46 12/18/24 07:46 12/18/24 07:46 12/18/24 07:46 12/18/24 07:49 12/18/24 07:49 Oxygen Delivery Method Room Air Weight: 59.5 kg Body Mass Index (BMI) 23.2 Intake & Output: Intake and Output for Last 24 Hours 12/16/24 12/17/24 12/18/24 23:59 23:59 23:59 Intake Total 1000 / 1200 350 / 350 Output Total 200 / 200 Balance 1000 / 1000 150 / 150 Lab / Micro Data 12/18/24 05:14 12/18/24 05:14 Labs: Laboratory Results - last 24 hr 12/17/24 18:59: WBC 9.1, RBC 5.76 H, Hgb 16.0 H, Hct 46.8, MCV 81.3, MCH 27.8, MCHC 34.2, RDW Std Deviation 36.7, RDW Coeff of Octavia 12.4, Plt Count 249, MPV 9.4, Immature Gran % (Auto) 1.000 H, Neut % (Auto) 81.2 H, Lymph % (Auto) 10.1 L, [place] % (Auto) 6.8, Eos % (Auto) 0.2, Baso % (Auto) 0.7, Absolute Neuts (auto) 7.4, Absolute Lymphs (auto) 0.92, Nucleated RBC % 0, Sodium 117 L*, Potassium 4.2, Chloride 83 L, Carbon Dioxide 20.0 L, Anion Gap 13, BUN 17, Creatinine 0.51 L, Estim Creat Clear Calc 52.58, Est GFR (MDRD) Af Amer 152, Est GFR (MDRD) Non-Af 126, BUN/Creatinine Ratio 33.3 H, Glucose 208 H, Calcium 9.4, Ethyl Alcohol < 3.0 12/17/24 22:05: Urine Color Yellow, Urine Clarity Clear, Urine pH 6.0, Ur Specific Rudolph 1.020, Urine Protein 15 H, Urine Glucose (UA) 100 H, Urine Ketones 50 H, Urine Occult Blood Negative, Urine Nitrite Negative, Urine Bilirubin Negative, Urine Urobilinogen 1 H, Ur Leukocyte Esterase 100 H, Urine RBC 0 SEEN, Urine WBC 5-10 SEEN, Ur Squamous Epith Cells 0 SEEN, Ur Transition Epith Cell 0-5 SEEN, Urine Bacteria RARE, Urine Mucus 0 SEEN, Ur Random Sodium 14, Urine Creatinine 63.40, Urine Opiates Screen NEGATIVE, Urine Methadone Screen NEGATIVE, Ur Barbiturates Screen NEGATIVE, Ur Phencyclidine Scrn NEGATIVE, Ur Amphetamines Screen NEGATIVE, MDMA (Ecstasy) Screen NEGATIVE, U Benzodiazepines Scrn NEGATIVE, Urine Cocaine Screen NEGATIVE, U Cannabinoids Screen NEGATIVE, Ur Drug Screen Comment 12/17/24 22:10: POC Glucose 191 H 12/17/24 22:29: Sodium 122 L, Potassium 4.0, Chloride 88 L, Carbon Dioxide 22.0, Anion Gap 12, BUN 16, Creatinine 0.54 L, Estim Creat Clear Calc 52.58, Est GFR (MDRD) Af Amer 142, Est GFR (MDRD) Non-Af 118, BUN/Creatinine Ratio 29.6 H, Glucose 183 H, Calcium 9.0, Magnesium 1.6, TSH 0.787 12/18/24 02:25: Sodium 121 L, Potassium 4.0, Chloride 92 L, Carbon Dioxide 19.0 L, Anion Gap 10, BUN 15, Creatinine 0.46 L, Estim Creat Clear Calc 52.58, Est GFR (MDRD) Af Amer 170, Est GFR (MDRD) Non-Af 140, BUN/Creatinine Ratio 32.3 H, Glucose 121 H, Calcium 8.5 12/18/24 05:14: WBC 7.8, RBC 5.33, Hgb 14.9, Hct 44.0, MCV 82.6, MCH 28.0, MCHC 33.9, RDW Std Deviation 37.7, RDW Coeff of Octavia 12.4, Plt Count 222, MPV 9.8, Immature Gran % (Auto) 1.200 H, Neut % (Auto) 76.1 H, Lymph % (Auto) 14.6 L, [place] % (Auto) 7.1, Eos % (Auto) 0.5, Baso % (Auto) 0.5, Absolute Neuts (auto) 5.9, Absolute Lymphs (auto) 1.13, Nucleated RBC % 0, Sodium 121 L, Potassium 4.1, Chloride 89 L, Carbon Dioxide 23.0, Anion Gap 9, BUN 15, Creatinine 0.56, Estim Creat Clear Calc 52.58, Est GFR (MDRD) Af Amer 137, Est GFR (MDRD) Non-Af 113, BUN/Creatinine Ratio 26.8 H, Glucose 123 H, Calcium 8.9, Total Bilirubin 0.50, AST 35, ALT 25, Alkaline Phosphatase 157 H, Total Protein 6.9, Albumin 3.3, Globulin 3.6, Albumin/Globulin Ratio 0.9 12/18/24 06:30: POC Glucose 135 H Radiography Diagnostic Testing: Radiology Impression Chest X-Ray 12/17/24 19:42 IMPRESSION: 1.5 cm round density projecting over the left lung base could represent a pulmonary nodule versus nipple shadow. Recommend AP and lateral view radiographs with nipple markers. Electronically Signed: Kalen Matthews MD at 20:59 EST , Rhythm Strip Rhythm Strip: Sinus Rhythm Rate: 112 Ectopy: PVC(s) Physical Exam Const alert and no apparent distress HEENT head/scalp atraumatic and moist oral mucous membranes Resp normal respiratory effort, no retractions, no use of accessory muscles and clear to auscultation bilaterally Cardio regular rate, regular rhythm, S1 normal heart sound and S2 normal heart sound GI normal to inspection, nondistended, normoactive bowel sounds, soft to palpation, non-tender and non-distended Assessment & Plan Assessment/Plan (1) Adult failure to thrive: (2) Depression: PLAN: Plan Acute Hyponatremia Chronic. Through [facility] on 11/20/24 it was 128. TSH WNL. Cortisol WNL. Check Serum osm 263, urine osm 418, urine sodium 21. Improved with IVF. Hold Furosemide, buspirone, sertraline. Appears consistent with SIADH. Lung Mass: 1.5cm LLL pulmonary nodule v nipple shadow. Check PA and lateral xray. Chronic conditions: Anxiety and depression, uncontrolled: Unfortunately unclear baseline of hyponatremia previously given no comparison labs, will temporarily hold sertraline, continue BuSpar and we add back sertraline once assure that sodium levels improving certainly given age may contribute somewhat, will need crisis evaluation once medically cleared and potential geriatric psychiatric facility placement if felt appropriate.Diabetes mellitus type II with hyperglycemia: Admission glucose 208, hold oral home regimen, ADA diet, accu checks w/ ISS. CAD: Status post PCI per history, will continue aspirin, statin, losartan, metoprolol regimen with hold parameters as needed. Chronic COPD/Asthma w/ Chronic Hypoxia Respiratory Failure: Will maintain on home oxygen supplementation, continue ATC budesonide, PRN albuterol, HOB, IS parameters, encourage tobacco cessation.Hypertension: Continue home regimen including metoprolol, isosorbide with hold parameters as needed, holding Lasix/losartan given significant dehydrated presentation with hyponatremia. PRN hydralazine. Hyperlipidemia: Continue patient on statin therapy. Valvular heart disease: Noted history status post AVR, no echocardiogram noted in the system, encourage continued follow-up outpatient with cardiology as previously arranged. Tobacco Abuse: Encouraged cessation, inpatient consultation per RT, NR if desired but declined upon admission. Severe protein calorie malnutrition: Per family significant decreased oral intake over at least a 7-day period, adult failure to thrive, depression associated, per their report also losing weight, nutrition consulted for recommendations. DVT prophylaxis: Lovenox. Code status: full. Charges/Coding Visit Charges Inpatient E&M: 25402 Subs Hosp L2
[2024-12-18] MEDS: Isosorbide Mononitrate 30 MG Tablet PO (08:14)
[2024-12-18] MEDS: Enoxaparin 40 MG/0.4 ML Syringe SC (08:15)
[2024-12-18] MEDS: Losartan Potassium 25 MG Tablet PO (08:16)
--- NOTE | 2024-12-18 08:17 | RAD_ITS ---
EXAM: XR CHEST, 2 VIEWS CLINICAL INDICATION: lung mass TECHNIQUE: Frontal and lateral views of the chest. COMPARISON: 12/17/24 FINDINGS: LUNGS AND PLEURAL SPACES: Emphysema. No pneumothorax. No effusion. Approximately 2 cm nodule at the posterior left lower lobe. HEART: Aortic valvular stent/replacement. Cardiac silhouette not enlarged. MEDIASTINUM: Central airways and mediastinal contour are unremarkable. BONES/JOINTS: Unremarkable. No acute fracture. SOFT TISSUES: Unremarkable. VASCULATURE: Atherosclerotic calcifications of the nonenlarged thoracic aortic arch. RAD/Chest PA and Lateral IMPRESSION: Approximately 2 cm nodule at the posterior left lower lobe. Recommend CT for further investigation. No acute disease. Electronically Signed: Lencho Domínguez MD at 17:34 EST ,
[2024-12-18 08:48] LABS: Osmolality, Serum 263 mOsm/KG (280-301)
[2024-12-18 09:57] LABS: Osmolality, Urine 418 mOsm/KG
[2024-12-18 10:00] LABS: Urine Sodium 21 mmol/L (Not Establ.)
[2024-12-18] MEDS: 0.9% Saline Lock 10 ML Syringe IV (10:29)
[2024-12-18] MEDS: Insulin Lispro 100 UNIT/ML INSULN.PEN SC ×3 (11:40→23:08)
--- NOTE | 2024-12-18 11:40 | CASEMGMT ---
Social Work SW met with pt and dgt Ninfa. Ninfa confirms that plan is for pt to be medically stabilized and then assessed for psychiatric placement. Per physician, pt is not medically cleared for evaluation by crisis at this time. SW will continue to follow and make referral to crisis when medically cleared. SHIRLENE Verma
[2024-12-18 12:07] LABS: Bedside Glucose 223 mg/dL (74-106)
[2024-12-18] MEDS: Glucerna Shake 120 ML LIQUID PO (14:37)
--- NOTE | 2024-12-18 15:45 | CHAPLAIN ---
Type of Pastoral Visit ___ Initial Visit ___ Follow-up Visit ___ On-call Visit ___ General Patient Visit ___ Spiritual Assessment ___ Family Conference ___ Bereavement ___ Rapid Response ___ Code Blue ___ Other (describe below) Pastoral Care Referral From ___ Patient ___ Family ___ Nurse ___ Physician ___ Fish Smoker ___ Still Tender ___ Other (describe below) Sacrament/Intervention ___ Active listening ___ Anointing ___ Cheondoism ___ Bereavement ___ Communion ___ Clara exploration ___ ___ Life review ___ Prayer ___ Reconciliation ___ Sacrament of Sick ___ Supportive presence ___ Wedding ___ Other (describe below) Pastoral Comments with first attempted visit the patient had staff members in her room giving care; on second attempted visit today this patient was soundly sleeping and not disturbed
[2024-12-18 16:29] LABS: Bedside Glucose 179 mg/dL (74-106)
[2024-12-18] MEDS: Albuterol 2.5 MG/3 ML VIAL.NEB. INHALATION (19:39)
[2024-12-18] MEDS: Docusate Sodium 100 MG Capsule PO (22:59)
[2024-12-18] MEDS: Senna Tablet 1 TABLET PO (22:59)
[2024-12-19] VITALS (9 sets, daily range): BP systolic 100–126; BP diastolic 60–76; PULSE 75–88; RESP 16–18; TEMP 36.4–36.7; O2SAT 86–94; BMI 23.2
[2024-12-19 06:24] LABS: Absolute Lymphocyte Count 1.19 X10^3/uL (0.83-4.51); Absolute Neutrophil Count 4.7 X10^3/uL (2.0-7.7); Basophil# 0.06 X10^3/uL; Basophil% 0.9 % (0-1); Eosinophil# 0.06 X10^3/uL; Eosinophils% 0.9 % (0-5); Hemoglobin 13.2 g/dL (12.0-15.0); Lymphocyte # 1.19 X10^3/ul (0.83-4.51); Lymphocyte % 18.3 % (19-41); Mean Corp Hgb Conc 33.8 g/dL (32-36); Mean Corpuscular Hgb 28.3 pg (27.0-32.0); Mean Corpuscular Volume 83.7 fL (81-99); Mean Platelet Vol. 9.9 fl (6.2-12.0); Monocyte# 0.42 X10^3/uL; Monocyte% 6.4 % (0-10); NRBC Flagged by Analyzer 0 % (0-5); Neutrophil # 4.74 X10^3/uL (2.7-7.7); Neutrophil % 72.7 % (47-70); Platelet Count 210 K/mm3 (150-450); RBC Distribution Width CV 12.7 % (11.6-14.6); RBC Distribution Width SD 38.5 fl (35.1-43.9); Red Blood Count 4.66 M/mm3 (4.2-5.4); White Blood Count 6.5 K/mm3 (4.4-11.0)
[2024-12-19] MEDS: Insulin Lispro 100 UNIT/ML INSULN.PEN SC ×3 (06:41→17:07)
[2024-12-19 07:02] LABS: Bedside Glucose 177 mg/dL (74-106)
[2024-12-19] MEDS: Budesonide Respules 0.5 MG/2 ML AMPUL.NEB. INHALATION (07:10)
--- NOTE | 2024-12-19 07:10 | PN.HOSP_ITS ---
Reason for Visit Reason for Visit: Diagnoses Depression, unspecified (12/17/24) Adult failure to thrive (12/17/24) Subjective Subjective Feels well. Wants to go home. Objective Data Objective Data Vital Signs: Vital Signs Temp Pulse Resp BP Pulse Ox O2 Del Method 36.4 C L 82 16 115/74 93 Room Air 12/19/24 04:50 12/19/24 04:50 12/19/24 04:50 12/19/24 04:50 12/19/24 04:50 12/19/24 04:50 Oxygen Delivery Method Room Air Weight: 59.5 kg Body Mass Index (BMI) 23.2 Intake & Output: Intake and Output for Last 24 Hours 12/17/24 12/18/24 12/19/24 23:59 23:59 23:59 Intake Total 1000 / 1200 1350.0 / 1350.0 200 / 200 Output Total 200 / 200 Balance 1000 / 1000 1150.0 / 1150.0 200 / 200 Lab / Micro Data 12/19/24 05:44 12/19/24 05:44 Labs: Laboratory Results - last 24 hr 12/18/24 05:14: Serum Osmolality 263 L, Cortisol 20.90 12/18/24 09:35: Urine Osmolality 418, Ur Random Sodium 21 12/18/24 11:36: POC Glucose 223 H 12/18/24 16:05: POC Glucose 179 H 12/19/24 05:44: WBC 6.5, RBC 4.66, Hgb 13.2, Hct 39.0, MCV 83.7, MCH 28.3, MCHC 33.8, RDW Std Deviation 38.5, RDW Coeff of Octavia 12.7, Plt Count 210, MPV 9.9, Immature Gran % (Auto) 0.800, Neut % (Auto) 72.7 H, Lymph % (Auto) 18.3 L, [place] % (Auto) 6.4, Eos % (Auto) 0.9, Baso % (Auto) 0.9, Absolute Neuts (auto) 4.7, Absolute Lymphs (auto) 1.19, Nucleated RBC % 0 12/19/24 06:40: POC Glucose 177 H Radiography Diagnostic Testing: Radiology Impression Chest X-Ray 12/18/24 08:17 IMPRESSION: Approximately 2 cm nodule at the posterior left lower lobe. Recommend CT for further investigation. No acute disease. Electronically Signed: Lencho Domínguez MD at 17:34 EST , Rhythm Strip Rhythm Strip: Sinus Rhythm Rate: 112 Ectopy: PVC(s) Physical Exam Const alert and no apparent distress HEENT head/scalp atraumatic and moist oral mucous membranes Resp normal respiratory effort, no retractions, no use of accessory muscles and clear to auscultation bilaterally Cardio regular rate, regular rhythm, S1 normal heart sound and S2 normal heart sound GI normal to inspection, nondistended, normoactive bowel sounds, soft to palpation, non-tender and non-distended Assessment & Plan Assessment/Plan (1) Adult failure to thrive: (2) Depression: PLAN: Plan Acute Hyponatremia * Chronic. Through [facility] on 11/20/24 it was 128. * TSH WNL. Cortisol WNL. Check Serum osm 263, urine osm 418, urine sodium 21. * Improved with IVF. * Hold Furosemide, buspirone, sertraline. * Appears consistent with SIADH. Lung Mass: * Possible malignancy. Noted again on PA and lateral xray. Pt does not want any additional work up. I recommended pulmonary follow up. Chronic conditions: * Anxiety and depression, uncontrolled: Unfortunately unclear baseline of hyponatremia previously given no comparison labs, will temporarily hold sertraline, continue BuSpar and we add back sertraline once assure that sodium levels improving certainly given age may contribute somewhat, will need crisis evaluation once medically cleared and potential geriatric psychiatric facility placement if felt appropriate. Per dtr, pt stopped taking medications and eating for about 1 week. Plan was for her to go to a psychiatric facility. Crisis to evaluate. * Diabetes mellitus type II with hyperglycemia: Admission glucose 208, hold oral home regimen, ADA diet, accu checks w/ ISS. * CAD: Status post PCI per history, will continue aspirin, statin, losartan, metoprolol regimen with hold parameters as needed. * Chronic COPD/Asthma w/ Chronic Hypoxia Respiratory Failure: Will maintain on home oxygen supplementation, continue ATC budesonide, PRN albuterol, HOB, IS parameters, encourage tobacco cessation.Hypertension: Continue home regimen including metoprolol, isosorbide with hold parameters as needed, holding Lasix/losartan given significant dehydrated presentation with hyponatremia. PRN hydralazine. * Hyperlipidemia: Continue patient on statin therapy. * Valvular heart disease: Noted history status post AVR, no echocardiogram noted in the system, encourage continued follow-up outpatient with cardiology as previously arranged. * Tobacco Abuse: Encouraged cessation, inpatient consultation per RT, NR if desired but declined upon admission. * Severe protein calorie malnutrition: Per family significant decreased oral intake over at least a 7-day period, adult failure to thrive, depression associated, per their report also losing weight, nutrition consulted for recommendations. DVT prophylaxis: Lovenox. Code status: full. Charges/Coding Visit Charges Inpatient E&M: 83715 Subs Hosp L2
[2024-12-19 07:50] LABS: Anion Gap 8 (5-15); BUN 11 mg/dL (7-18); BUN/Creat Ratio 17.6 RATIO (10-20); Calcium,Total 8.8 mg/dL (8.5-10.1); Chloride 97 mmol/L (98-107); Creatinine, Serum 0.63 mg/dL (0.55-1.02); EST Glomerular Filtration Rate 99 mL/min (>60); Est Glom Filt Rate - Afr Amer 120 mL/min (>60); Estimated Creatinine Clearance 52.58 ml/min; Glucose 156 mg/dL (74-106); Potassium 4.1 mmol/L (3.5-5.1); Sodium Level 128 mmol/L (136-145)
--- NOTE | 2024-12-19 09:54 | CASEMGMT ---
Social Work Per physician, pt is medically cleared for crisis evaluation for psychiatric placement. Referral made to Crisis at [facility]. Clinicals faxed. SW met with pt's dgt and notified that pt will be evaluated by crisis today and dgt is agreeable. Nursing updated. SHIRLENE Verma
[2024-12-19] MEDS: Isosorbide Mononitrate 30 MG Tablet PO (10:47)
[2024-12-19] MEDS: Losartan Potassium 25 MG Tablet PO (10:47)
[2024-12-19] MEDS: Metoprolol Tartrate 50 MG Tablet PO (10:47)
[2024-12-19] MEDS: Enoxaparin 40 MG/0.4 ML Syringe SC (10:47)
[2024-12-19 12:41] LABS: Bedside Glucose 254 mg/dL (74-106)
--- NOTE | 2024-12-19 13:02 | CASEMGMT ---
Crisis reports that the pt is cleared from their perspective and can DC home now. Crisis states that the pt is interested in a Palliative Care Referral. Dr. Hummel notified and verbal order received. Screening tool completed. Order placed in [facility]. Screening Tool, Order, and demo sheet sent to [facility] via e-mail at this time for referral.
--- NOTE | 2024-12-19 13:10 | DS.PCM_ITS ---
Providers Date of Admission: 12/17/24 Primary Care Physician: DORY Wagoner Consultations 12/19/24 12:57 Consult: Hospice / Palliative Care Routine Consulting Provider: [facility] Reason for Consult: Palliative Consult for CHF, COPD EMERGENT Consult: No MD Notified: Yes Date Notified: 12/19/24 Time Notified: 12:57 Method of Notification: Verbal Reason For Visit: ADULT FTT, ANXIETY/DEPRESSION, HYPONATREMIA Diagnosis Discharge Diagnosis (1) Adult failure to thrive: Status: Acute Code(s): R62.7 - Adult failure to thrive (2) Depression: Status: Acute Code(s): F32.A - Depression, unspecified Plan Acute Hyponatremia * Chronic. Through [facility] on 11/20/24 it was 128. * TSH WNL. Cortisol WNL. Check Serum osm 263, urine osm 418, urine sodium 21. * Improved with IVF. * Daughter stated the patient stopped eating and drinking and taking her medications about a week prior to all this. Probably not iatrogenic but more likely her SIADH. Would continue with fluid restriction if the patient is able to follow. * Appears consistent with SIADH. Lung Mass: * Possible malignancy. Noted again on PA and lateral xray. Pt does not want any additional work up. I recommended pulmonary follow up. Chronic conditions: * Anxiety and depression, uncontrolled: Crisis saw and deemed the patient did not need to go to a psychiatric facility. The patient will be discharged and to resume her previous psychiatric medications. * Diabetes mellitus type II with hyperglycemia: Admission glucose 208, hold oral home regimen, ADA diet, accu checks w/ ISS. * CAD: Status post PCI per history, will continue aspirin, statin, losartan, metoprolol regimen with hold parameters as needed. * Chronic COPD/Asthma w/ Chronic Hypoxia Respiratory Failure: Will maintain on home oxygen supplementation, continue ATC budesonide, PRN albuterol, HOB, IS parameters, encourage tobacco cessation.Hypertension: Continue home regimen including metoprolol, isosorbide with hold parameters as needed, holding Lasix/losartan given significant dehydrated presentation with hyponatremia. PRN hydralazine. * Hyperlipidemia: Continue patient on statin therapy. * Valvular heart disease: Noted history status post AVR, no echocardiogram noted in the system, encourage continued follow-up outpatient with cardiology as previously arranged. * Tobacco Abuse: Encouraged cessation, inpatient consultation per RT, NR if desired but declined upon admission. * Severe protein calorie malnutrition: Per family significant decreased oral intake over at least a 7-day period, adult failure to thrive, depression associated, per their report also losing weight, nutrition consulted for recommendations. DVT prophylaxis: Lovenox. Code status: full. Medications at Discharge Home Medications acetaminophen 325 mg tablet 650 mg PO Q4H PRN Pain 05/08/22 albuterol sulfate 2.5 mg/3 mL (0.083 %) solution for nebulization 2.5 mg inhalation 4X/DAY PRN PRN SOB 05/08/22 ascorbic acid (vitamin C) 500 mg tablet (Vitamin C) 500 mg PO DAILY 05/08/22 aspirin 81 mg capsule 81 mg PO QHS 05/08/22 atorvastatin 20 mg tablet 40 mg PO QHS 05/08/22 calcium 500 mg (as carbonate)-vitamin D3 3.125 mcg (125 unit) tablet 2 tab PO DAILY supplement 05/08/22 docusate sodium 50 mg capsule 100 mg PO QHS 05/08/22 isosorbide mononitrate 30 mg tablet,extended release 24 hr 30 mg PO DAILY 05/08/22 losartan 50 mg tablet 25 mg PO DAILY 05/08/22 melatonin 10 mg tablet 10 mg PO QHS 05/08/22 metformin 1,000 mg tablet 500 mg PO TID 05/08/22 metoprolol tartrate 100 mg tablet 50 mg PO BID 05/08/22 sennosides 8.6 mg tablet (Senna Laxative) 68.8 mg PO QHS 05/08/22 sertraline 100 mg tablet 100 mg PO BID 05/08/22 tiotropium bromide 18 mcg capsule with inhalation device (Spiriva with HandiHaler) 18 mcg inhalation DAILY 05/08/22 Hospital Course Operations None Procedures None Summary of Care Provided Hospital Course: Greater than 30 minutes spent on discharge. Patient presents with hyponatremia. Patient was being evaluated to be admitted to a psychiatric facility and is noted that her sodium was 117 so the patient was admitted to the hospital. Patient received IV fluids and her sodium is up to 128. Through [facility] it was noted that her sodium is 128 before as well. Patient has findings consistent with SIADH. Patient will resume her medications as the daughter states that when it was initially evaluated for her to go to a psychiatric unit that she has stopped eating and just want to without any overt plans of killing herself. Patient was seen by crisis today as she was medically stable and did not feel that she needed to go to a psychiatric facility. In the process of working her up patient had a chest x-ray that was concerning for a left lower lobe mass. This was also seen on the PA and lateral. Recommended CT. Discussed with the patient and she said that she did not want any further workup. I told the patient and her daughter that if she the patient changes her mind that she could follow-up with pulmonary as outpatient. Weight / BMI Weight Weight: 59.5 kg Body Mass Index (BMI) 23.2 ABG / Lab / Microbiology Data 12/19/24 05:44 12/19/24 05:44 Laboratory: Laboratory Results - last 24 hr 12/18/24 16:05: POC Glucose 179 H 12/19/24 05:44: WBC 6.5, RBC 4.66, Hgb 13.2, Hct 39.0, MCV 83.7, MCH 28.3, MCHC 33.8, RDW Std Deviation 38.5, RDW Coeff of Octavia 12.7, Plt Count 210, MPV 9.9, Immature Gran % (Auto) 0.800, Neut % (Auto) 72.7 H, Lymph % (Auto) 18.3 L, [place] % (Auto) 6.4, Eos % (Auto) 0.9, Baso % (Auto) 0.9, Absolute Neuts (auto) 4.7, Absolute Lymphs (auto) 1.19, Nucleated RBC % 0, Sodium 128 L, Potassium 4.1, C hloride 97 L, Carbon Dioxide 23.0, Anion Gap 8, BUN 11, Creatinine 0.63, Estim Creat Clear Calc 52.58, Est GFR (MDRD) Af Amer 120, Est GFR (MDRD) Non-Af 99, BUN/Creatinine Ratio 17.6, Glucose 156 H, Calcium 8.8 12/19/24 06:40: POC Glucose 177 H 12/19/24 12:22: POC Glucose 254 H Radiography Diagnostic Testing: Radiology Impression Chest X-Ray 12/18/24 08:17 IMPRESSION: Approximately 2 cm nodule at the posterior left lower lobe. Recommend CT for further investigation. No acute disease. Electronically Signed: Lencho Domínguez MD at 17:34 EST , D/C Instructions Discharge Diet: - (1.5 liters of fluid/day. ) DC O2, CPAP, BIPAP Needs RN Home O2 Qualification: Home O2 Qualification: Is the patient on home oxygen No 12/19/24 06:53 Home O2 Qualification: AT REST 1- Pulse Ox at rest 94 12/19/24 06:53 Home O2 Qualification: WITH AMBULATION 1- Pulse Ox with ambulation 93 12/19/24 06:53 1- Oxygen Flow Rate with 0 12/19/24 06:53 ambulation Home O2 Discharge instructions: No Meaningful Use Info Meaningful Use Meaningful Use Diagnoses (Choose all that apply): None applicable Ischemic Stroke Statin Dosing Therapy Reference: STATIN DOSE THERAPY REFERENCE: * Patients > 75 years receive moderate or high dose statin therapy. * Patients 75 years or YOUNGER should receive HIGH intensity statin dose unless contraindicated. You will be required to document reason for non-treatment if statin daily dose does not meet guidelines. HIGH DOSE STATIN THERAPY DAILY Atorvastatin > than or = to 40 mg Rosuvastatin > than or = to 20 mg Amlodipine + Atorvastatin > than or = to 2.5/40 mg Ezetimibe + Simvastatin 10/80 mg Simvastatin 80mg Discharge Plan Admission Admit Date/Time: 12/17/24 20:14 Primary Reason for Your Visit: Hyponatremia Attending Provider: Chase Hummel Primary Care Provider: Dyana Diaz NP Consulting Providers: Lolly Fabian; Frances Hadley; Katia Quinones; Julio César Madrigal; Telma Love; Lisa Henry; Tamara Espinoza [employer] VICE PRESIDENT [employer] ) Instructions Additional Instructions / Restrictions: Your sodium was low when you were admitted. You have a history of low sodium likely due to SIADH (syndrome of inappropriate antidiuretic hormone). This may have been exacerbated by the fact that you were eating or drinking much during this time. Discharge Orders/Prescriptions Prescriptions: Continued losartan 50 mg tablet 25 mg PO DAILY sennosides [Senna Laxative] 8.6 mg Tablet 68.8 mg PO QHS acetaminophen 325 mg Tablet 650 mg PO Q4H PRN (Reason: Pain) atorvastatin 20 mg Tablet 40 mg PO QHS albuterol sulfate 2.5 mg /3 mL (0.083 %) solution for nebulization 2.5 mg inhalation 4X/DAY PRN PRN (Reason: SOB) metoprolol tartrate 100 mg tablet 50 mg PO BID isosorbide mononitrate 30 mg tablet extended release 24 hr 30 mg PO DAILY sertraline 100 mg tablet 100 mg PO BID docusate sodium 50 mg Capsule 100 mg PO QHS ascorbic acid (vitamin C) [Vitamin C] 500 mg Tablet 500 mg PO DAILY metformin 1,000 mg tablet 500 mg PO TID Patient Comments: 2 in the AM 1 at lunch 1 at dinner. tiotropium bromide [Spiriva with HandiHaler] 18 mcg capsule, w/inhalation device 18 mcg INHALATION DAILY calcium carbonate-vitamin D3 500 mg-3.125 mcg (125 unit) Tablet 2 tab PO DAILY melatonin 10 mg Tablet 10 mg PO QHS aspirin 81 mg Capsule 81 mg PO QHS Discontinued furosemide 40 mg tablet 40 mg PO DAILY Patient Comments: pt does not take daily, only when she feels it is needed. diphenhydramine HCl [Allergy] 25 mg Tablet 25 mg PO DAILY PRN (Reason: allergy symptoms) Referrals / Follow Up: Dyana Diaz NP, [employer]-C [Primary Care Provider] - Within 2 Weeks Disposition Disposition (needs filled in before D/C Order can be placed): Home, Self Care Charges/Coding Visit Charges Inpatient E&M: 64994 Disch Hosp >30min
--- NOTE | 2024-12-19 13:21 | CASEMGMT ---
Social Work JENNIFER spoke with Nellie from [facility] who has met with pt and dgt to discuss psychiatric placement. Crisis has cleared pt for discharge home at this time. Safety plan completed and copy placed on pt chart. SW?to room to meet with patient for initial transition planning/care coordination?assessment.?Pt voices understanding and consents to?assessment.? Pt is A/Ox4 and answers all questions appropriately. Pt and her dgt and a friend present during assessment and pt gave permission for assessment with visitors present.?? Care providers, pharmacy, and demographics verified. PCP: Dyana Diaz NP Preferred [facility]acy: [facility] Insurance: [facility] Prescription Benefit:?Yes Living Will/HPOA:?Yes. HCPOA is dgt Ninfa [employer] (formerly known as [employer]) LNOK: Dgt Ninfa Michael Living Arrangements: Pt lives alone in an in law suite attached to her brothers home. Pt has a ramp entrance and one story home. Pt is able to complete ADLs but she prefers that her dgt is present when she showers for safety. Dgt assists with IADLs. Pt ambulates independently but states she is a furniture walker Transportation:? Pt is able to drive, but dgt drives pt to all appointments DME: ? walker, cane, walk in shower with a seat and grab bars. Pt has an oxygen concentrator through [facility] in [place], but she does not wear oxygen and is not establised through an oxygen company. 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 SW provided additional written information on depression, coping and assistance for caregivers and a list of counselors. SW also discussed Palliative Medicine and pt is agreeable to referral. SW also discussed home health and pt denies need at this time as she is not home bound. SW discussed [facility] services and pt agreeable to referral. [facility] [place] and [facility]. PLAN: Home with family support and referral to Palliative Medicine and referral to [facility]. Pt denies need for HHC. SHIRLENE Verma
[2024-12-19] MEDS: Albuterol 2.5 MG/3 ML VIAL.NEB. INHALATION (14:24)
--- NOTE | 2024-12-19 14:38 | CHAPLAIN ---
Type of Pastoral Visit _x__ Initial Visit ___ Follow-up Visit ___ On-call Visit ___ General Patient Visit ___ Spiritual Assessment ___ Family Conference ___ Bereavement ___ Rapid Response ___ Code Blue ___ Other (describe below) Pastoral Care Referral From _x__ Patient ___ Family ___ Nurse ___ Physician ___ Medical Staff Manager ___ Product Technology Scientist ___ Other (describe below) Sacrament/Intervention _x__ Active listening ___ Anointing ___ Tenriism ___ Bereavement ___ Communion _x__ Clara exploration ___ ___ Life review _x__ Prayer ___ Reconciliation ___ Sacrament of Sick ___ Supportive presence ___ Wedding ___ Other (describe below) Pastoral Comments patient is up in the chair and a friend is with her; pt states that she is much better than the last few days and her friend says yes, 100% better; pt is talkative and asks questions herself about the shearer printed circuit boards and his role in the hospital; pt states that she grew up in a clara community but has since not been practicing that; pt does welcome presence and prayer and asks for a song to be sung; Amazing Kristen was sung for her; pt expresses gratitude
--- NOTE | 2024-12-19 16:25 | CASEMGMT ---
Per the new RN o2 testing, pt qualifies for 1L of oxygen with exertion. Dr. Hummel notified. RN CM to pt room. Pt sitting up comfortably in the chair. Pt reports that she has old oxygen equipment but is not currently affiliated with any DME company. Pt requires a new setup. A verbal list of local in-network DME companies were provided to the pt at this time. Pt prefers [facility].?Rx signed by Dr. Hummel. Referral sent to [facility] at this time with O2 testing, O2 Rx, and DC Summary. Pt RN aware. TC to [place] [facility] [place] the liaison to deliver the oxygen equipment momentarily. Pt is aware to call [facility] prior to DC for the delivery of the remaining needed oxygen equipment. Pt denies further needs at this time.
[2024-12-19 16:26] LABS: Bedside Glucose 176 mg/dL (74-106)
[2024-12-19 17:05] LABS: Bedside Glucose 294 mg/dL (74-106)
== END 2024-12-19 18:15 | disposition home or self-care (01) | DRG 644 ==
LOC: ED 20:36 → MS3 12-18 06:56
PROVIDERS: Admitting Provider Family Medicine; Emergency Provider Emergency Medicine; PCP Nurse Practitioner Primary Care
DX: E22.2 Syndrome of inappropriate secretion of antidiuretic hormone (principal); J96.11 Chronic respiratory failure with hypoxia; R62.7 Adult failure to thrive; Z99.81 Dependence on supplemental oxygen; J44.9 Chronic obstructive pulmonary disease, unspecified; E11.65 Type 2 diabetes mellitus with hyperglycemia; I10 Essential (primary) hypertension; F32.A Depression, unspecified; F41.9 Anxiety disorder, unspecified; E78.00 Pure hypercholesterolemia, unspecified; I25.10 Atherosclerotic heart disease of native coronary artery without angina pectoris; F17.210 Nicotine dependence, cigarettes, uncomplicated; I25.2 Old myocardial infarction; R91.8 Other nonspecific abnormal finding of lung field; Z95.5 Presence of coronary angioplasty implant and graft; Z68.23 Body mass index [BMI] 23.0-23.9, adult; Z79.51 Long term (current) use of inhaled steroids; Z79.82 Long term (current) use of aspirin; Z79.84 Long term (current) use of oral hypoglycemic drugs; Z79.899 Other long term (current) drug therapy
CPT/HCPCS: 36415; 71045; 71046; 80048; 80053; 80307; 81001; 82077; 82533; 82570; 82962; 83735; 83930; 83935; 84300; 84443; 85025; 93005; 94640; 94668; 97162; 97166; 97535; 99284; A4216